=== PATIENT | female | born 1990 | race Caucasian/White ===

== ENCOUNTER 2018-07-01 11:52 | Observation (INO) | payer BC ==
[~2018-07-01] VITALS: Ht 157.5 cm; Wt 129.7 kg
[2018-07-01] MEDS ORDERED: PREN-380 PO (12:11)
[2018-07-01] MEDS ORDERED: VITA1TAB44 PO (12:12)
[2018-07-01] MEDS ORDERED: FERR325E14 PO (12:12)
[2018-07-01] MEDS ORDERED: TERBUTALINE 1 MG/ML VIAL SUBQ SCH (12:45)
[2018-07-01 12:46] VITALS: BP 126/74
[2018-07-01] MEDS ORDERED: TERBUTALINE 1 MG/ML VIAL SUBQ ONE (13:01)
[2018-07-01] MEDS ORDERED: ONDANSETRON 4 MG/2 ML VIAL IM PRN (13:40)
[2018-07-01 14:24] LABS: HEMATOCRIT 38.6 % (36-48); HEMOGLOBIN 12.9 g/dL (12.0-16.0); MEAN CORPUSCULAR HEMOGLOBIN 30 pg (27-31); MEAN CORPUSCULAR HGB CONC 33 g/dL (33-37); MEAN CORPUSCULAR VOLUME 88.7 fL (80-94); PLATELET COUNT (AUTO) 117 K/uL (140-450); RED BLOOD CELL COUNT(AUTO) 4.35 MIL/uL (4.20-5.40); RED CELL DISTRIBUTION WIDTH 13.5 % (11.6-13.7); WHITE BLOOD COUNT (AUTO) 16.8 K/uL (4.8-10.8)
[2018-07-01] MEDS ORDERED: ONDANSETRON 4 MG/2 ML VIAL ONE (14:29)
[2018-07-01 14:41] LABS: PROTHROMBIN TIME 9.4 secs (10.8-13.4)
[2018-07-01 15:32] LABS: LYMPHOCYTES % (MANUAL) 1 % (20-46); MONOCYTES % (MANUAL) 5 % (5-12)
== END 2018-07-01 17:15 | disposition home or self-care (01) ==
LOC: MLD 11:52
PROVIDERS: ADMIT Obstetrics & Gynecology; ATTEND Obstetrics & Gynecology
DX: O26.893 Other specified pregnancy related conditions, third trimester (principal); W19.XXXA Unspecified fall, initial encounter; Y93.89 Activity, other specified; Y92.89 Other specified places as the place of occurrence of the external cause; Y99.8 Other external cause status; Z3A.32 32 weeks gestation of pregnancy
CPT/HCPCS: 36415; 76805; 81000; 85025; 85379; 85610; 85730; 86886; 86900; 86901; 96372; G0378; J2405; J2790; J3105; Q0092